=== PATIENT | male | born 1995 | race Caucasian/White ===

== ENCOUNTER 2024-02-18 06:20 | Emergency (ER) | payer BC | END 2024-02-18 07:18 | disposition home or self-care (01) | LOC: ERS 06:20 | DX: M79.631 Pain in right forearm (principal); F17.290 Nicotine dependence, other tobacco product, uncomplicated | CPT/HCPCS: 99283 ==

== ENCOUNTER 2024-03-31 14:07 | Emergency (ER) | payer BC ==
[2024-03-31] MEDS ORDERED: Lidocaine 1% PF 5 ML VIAL ONE (15:34)
== END 2024-03-31 16:04 | disposition home or self-care (01) ==
LOC: ERS 14:07
DX: S31.821A Laceration without foreign body of left buttock, initial encounter (principal); F17.290 Nicotine dependence, other tobacco product, uncomplicated; W26.0XXA Contact with knife, initial encounter; Y93.89 Activity, other specified
CPT/HCPCS: 12002; 99282